=== PATIENT | male | born 1975 | race Caucasian/White ===

== ENCOUNTER → 2019-09-05 | Outpatient (CLI) | payer OTHER ==
--- NOTE | 2019-09-05 15:06 | US ---
EXAMINATION TYPE: US abdomen complete DATE OF EXAM: 09/05/2019 COMPARISON: NONE CLINICAL HISTORY: K81.0 Acute cholecystitis. EXAM MEASUREMENTS: Liver Length: 16.7 cm Gallbladder Wall: 0.2 cm CBD: 0.5 cm Spleen: 11.3 cm Right Kidney: 10.6 X 6.2 X 5.4 cm Left Kidney: 10.2 x 6.1 x 5.3 cm Pancreas: Obscured by bowel gas Liver: Diffusely Heterogeneous. Hypoechoic area visualized adjacent to the gallbladder measuring 3.6 x 2.3 x 2.8 cm Gallbladder: wnl Evidence for sonographic Harrison's sign: No CBD: wnl as visualized Spleen: wnl Right Kidney: No hydronephrosis or masses seen Left Kidney: No hydronephrosis or masses seen Upper IVC: Obscured by overlying bowel gas Abd Aorta: Obscured by overlying bowel gas The liver is heterogeneous. IMPRESSION: 1. Mild fatty infiltration liver. Some focal spurring may be adjacent to the gallbladder bed fossa.
== END | disposition home or self-care (01) ==
LOC: RADUSWWP 08:01
PROVIDERS: ATTEND Family Medicine
DX: K76.0 Fatty (change of) liver, not elsewhere classified (principal); K81.0 Acute cholecystitis
CPT/HCPCS: 76700

== ENCOUNTER → 2019-09-16 | Day surgery (SDC) | payer OTHER ==
[2019-09-15 10:11] VITALS: BMI 37.5
[~2019-09-16] MED LIST: LACTATED RINGERS 1,000 ML IV ONE; LACTATED RINGERS 1,000 ML IV SCH; LIDOCAINE 1% (10MG/ML) FOR IV START INTRADERMA PRN; PROPOFOL 10 MG/ML 20 ML VIAL IV ONE
[2019-09-16 11:08] VITALS: RESP 18; TEMP 97.8
--- NOTE | 2019-09-16 12:28 | P.PCN ---
Date of Procedure: 09/16/19 Procedure(s) Performed: PREOPERATIVE DIAGNOSIS: Rectal bleeding, epigastric pain POSTOPERATIVE DIAGNOSIS: Minimal gastritis, diffuse colitis PROCEDURE: 1. EGD with biopsy 2. Colonoscopy with random biopsy ANESTHESIA: MAC SURGEON: Rashdi Lou M.D. SPECIMENS: Antrum, colon ENDOSCOPIC PROCEDURE: The patient was on the endoscopy table in the left decubitus position. The Olympus gastroscope was inserted into the oropharynx and passed under direct visualization to the region of the third portion of the duodenum. From that point the scope was slowly withdrawn inspecting all surfaces carefully. There were no neoplastic inflammatory or polypoid lesions throughout the duodenum. The pylorus was widely patent. The stomach was carefully inspected. There was minimal gastritis present. A biopsy of the antrum took place to rule out H. pylori. Retroflexion revealed a normal hiatus. The esophagus was then carefully examined. There were no neoplastic inflammatory or polypoid lesions throughout the visualized esophagus. The patient was kept on the endoscopy table in the left decubitus position. The Olympus colonoscope was inserted into the anus and passed under direct visualization to the base of the cecum. The appendiceal orifice was visualized. From that point the scope was slowly withdrawn inspecting all surfaces carefully. There was noted to be diffuse colitis. The cecum and proximal ascending colon appeared fairly normal. Throughout the remainder of the colon however there was significant inflammatory changes with superficial ulcerations and mucus. No polypoid lesions were seen. Random biopsies were taken throughout the colon. There were no skip sections with involvement all the way down to the anus. No visible diverticulosis. Digital rectal examination was normal. The patient was taken to the recovery room in stable condition per anesthesia guidelines. RECOMMENDATIONS: Await biopsy results. Empirically begin topical anti- inflammatories. Likely GI consult following that.
[2019-09-16 13:06] VITALS: BP 121/79; PULSE 85
== END ==
LOC: ORWHC2ENDO 10:36
PROVIDERS: ATTEND Surgery
DX: K29.51 Unspecified chronic gastritis with bleeding (principal); K51.911 Ulcerative colitis, unspecified with rectal bleeding; Z87.19 Personal history of other diseases of the digestive system
CPT/HCPCS: 45380; 43239; J2704; 88305

== ENCOUNTER → 2020-02-11 | Outpatient (CLI) | payer OTHER | END | disposition home or self-care (01) | LOC: LABWHC1 12:45 | PROVIDERS: ATTEND Family Medicine | DX: Z20.828 Contact with and (suspected) exposure to other viral communicable diseases (principal) | CPT/HCPCS: U0003; C9803 ==

== ENCOUNTER → 2024-03-25 | Outpatient (CLI) | payer OTHER ==
--- NOTE | 2024-03-25 13:31 | XR ---
EXAMINATION TYPE: XR cervical spine limited DATE OF EXAM: 03/25/2024 1:04 PM COMPARISON: None CLINICAL INDICATION: Male, 49 years old with history of M51.16 Radicular DDD PAIN; [facility] TECHNIQUE: XR cervical spine limited, (1-2) views of the cervical spine FINDINGS: Or The osseous structures show normal alignment without evidence of an acute fracture. There are osteoph ytes noted throughout the cervical spine on the anterior and lateral aspects of the vertebral bodies. The intervertebral disk spaces are narrowed at multiple levels Pedicles are intact. Soft tissues ar e within normal limits. The odontoid appears intact. IMPRESSION: 1. No fracture or dislocation. 2. Mild degenerative disc disease changes of the cervical spine. [facility], , 03/25/2024 1:28 PM
--- NOTE | 2024-03-25 13:41 | XR ---
EXAMINATION TYPE: XR thoracic spine 2V, XR lumbar spine 2 or 3V DATE OF EXAM: 03/25/2024 1:04 PM COMPARISON: None CLINICAL INDICATION: Male, 49 years old with history of M51.16 Radicular DDD PAIN; [facility] TECHNIQUE: XR thoracic spine 2V, XR lumbar spine 2 or 3V views of the spine in Frontal and lateral pr ojections. FINDINGS: No evidence of acute fracture. There is scattered multilevel disk space narrowing without loss of ve rtebral body height. There is normal alignment of the thoracic vertebral bodies. Scattered osteophyte formation along the anterior and lateral aspects of the vertebral bodies. Neural foramen are patent given limitations of this exam. Spinal canal appears patent. IMPRESSION: 1. No acute osseous pathology. 2. Mild multilevel degeneration changes of the spine. [facility], , 03/25/2024 1:38 PM
== END | disposition home or self-care (01) ==
LOC: RADXRMAIN 12:35
PROVIDERS: ATTEND Family Medicine
DX: M51.16 Intervertebral disc disorders with radiculopathy, lumbar region (principal); M50.30 Other cervical disc degeneration, unspecified cervical region
CPT/HCPCS: 72040; 72070; 72100